=== PATIENT | female | born 1995 | race American Indian/Alaskan Native ===

== ENCOUNTER 2018-07-08 07:02 | Emergency (ER) | payer SELFPAY ==
[2018-07-08 07:24] VITALS: BP 143/87
--- NOTE | 2018-07-08 09:23 | Emergency Department Report ---
ED General Adult HPI - General Chief complaint: Chest Pain Stated complaint: CHEST PAIN/ABD PAIN/DIZZINESS Time Seen by Provider: 07/08/18 09:19 Source: patient Mode of arrival: Ambulatory Limitations: No Limitations - History of Present Illness Initial comments: Patient is 23 years old female with history of ectopic before. Patient presented to the ER complaining of chest pain, diffuse sharp in nature and does not radiate. Patient also complaining of left lower abdominal pain on and off for the last of the 3 days.. Patient stated that she is worried that she might have another ectopic . She denied any vaginal bleeding, vaginal discharge or urinary symptoms. Patient denied any dizziness or lightheadedness - Related Data Previous Rx's Medication Instructions Recorded Last Taken Type Ondansetron [Zofran Odt] 4 mg PO Q8HR PRN #14 tab.rapdis 07/08/18 Unknown Rx Vit Calc,Iron,Folic 1 each PO DAILY #30 tablet 07/08/18 Unknown Rx [ Vitamins] Allergies Allergy/AdvReac Type Severity Reaction Status Date / Time No Known Allergies Allergy Unverified 07/08/18 07:19 ED Review of Systems ROS: Stated complaint: CHEST PAIN/ABD PAIN/DIZZINESS Other details as noted in HPI Comment: All other systems reviewed and negative Respiratory: denies: cough, shortness of breath Cardiovascular: chest pain Gastrointestinal: abdominal pain. denies: nausea, vomiting Neurological: denies: headache, weakness ED Past Medical Hx - Past Medical History Hx Asthma: Yes - Surgical History Additional Surgical History: t&a - Social History Smoking Status: Current Every Day Smoker Substance Use Type: Alcohol - Medications Home Medications: Home Medications Medication Instructions Recorded Confirmed Last Taken Type Ondansetron [Zofran Odt] 4 mg PO Q8HR PRN #14 tab.rapdis 07/08/18 Unknown Rx Vit Calc,Iron,Folic 1 each PO DAILY #30 tablet 07/08/18 Unknown Rx [ Vitamins] ED Physical Exam - General Limitations: No Limitations General appearance: alert, in no apparent distress - Head Head exam: Present: atraumatic, normocephalic - Eye Eye exam: Present: normal appearance - ENT ENT exam: Present: normal exam, normal orophraynx, mucous membranes moist - Neck Neck exam: Present: normal inspection, full ROM. Absent: tenderness, meningismus, lymphadenopathy, thyromegaly - Respiratory Respiratory exam: Present: normal lung sounds bilaterally - Cardiovascular Cardiovascular Exam: Present: regular rate, normal rhythm, normal heart sounds - GI/Abdominal GI/Abdominal exam: Present: soft, normal bowel sounds. Absent: distended, tenderness, guarding, rebound, rigid, organomegaly, mass, bruit, pulsatile mass , hernia - Extremities Exam Extremities exam: Present: normal inspection, full ROM. Absent: tenderness, normal capillary refill, pedal edema, joint swelling, calf tenderness - Neurological Exam Neurological exam: Present: alert, oriented X3, CN II-XII intact, normal gait, reflexes normal - Skin Skin exam: Present: warm, intact, normal color ED Course Vital Signs 07/08/18 07/08/18 07:19 12:02 Temperature 97.7 F Pulse Rate 100 H Respiratory 16 18 Rate Blood Pressure 143/87 O2 Sat by Pulse 99 Oximetry ED Medical Decision Making - Lab Data Result diagrams: 07/08/18 10:01 07/08/18 10:01 - Radiology Data Radiology results: report reviewed Referring Physician: TOÑO FATIMA Patient Name: LYDIA GARCIA Date of : 1995 Sex: Female Report Date: 2018-07-08 Report Status: [place] [address] Ultrasound Report Signed Patient: LYDIA GARCIA MR#: [id number] : 1995 Acct:[id number] Age/Sex: 23 / F ADM Date: 07/08/18 Loc: ED Attending Dr: Ordering Physician: TOÑO FATIMA Date of Service: 07/08/18 Procedure(s): US OB transvaginal Accession Number(s): [id number] cc: TOÑO FATIMA FINAL REPORT EXAM: US OB TRANSVAGINAL HISTORY: ABDOMINAL PAIN TECHNIQUE: Transabdominal and transvaginal OB ultrasound. PRIORS: None currently available. FINDINGS: Single intrauterine dates 9.0 weeks by crown rump length. LEANN equals February 10, 2019.. heart rate: 173 BPM. Uterus: 9.4 x 4.2 x 5.5 cm. Within the canal there is a gestational sac, yolk sac, and pole. No subchorionic bleed. Right ovary: 3.6 x 1.8 x 1.7 cm. Within normal limits. Flow is present to the ovary. Left Ovary: 2.9 x 1.7 x 3.1 cm. Complex lesion or cyst measures 1.6 cm. Flow is present to the ovary. Adnexal: Unremarkable. No free fluid. IMPRESSION: Single live intrauterine . Suspect corpus luteal cyst in the left ovary. Transcribed By: TYM Dictated By: XAVIER HANKS MD Electronically Authenticated By: XAVIER HANKS MD Signed Date/Time: 07/08/181316 DD/ 16 TD/TT: 07/08/181316 Critical care attestation.: If time is entered above; I have spent that time in minutes in the direct care of this critically ill patient, excluding procedure time. ED Disposition Clinical Impression: Abdominal pain affecting Disposition: DC-01 TO HOME OR SELFCARE Is pt being admited?: No Condition: Stable Instructions: Abdominal Pain in (ED) Prescriptions: Ondansetron [Zofran Odt] 4 mg PO Q8HR PRN #14 tab.rapdis PRN Reason: Nausea And Vomiting Vit Calc,Iron,Folic [ Vitamins] 1 each PO DAILY #30 tablet Referrals: PRIMARY CARE, [Primary Care Provider] - 3-5 Days
[2018-07-08 10:21] LABS: Basophils # (Auto) 0.1 K/mm3 (0.0-0.1); Basophils % (Auto) 0.8 % (0.0-1.8); Eosinophils # (Auto) 0.3 K/mm3 (0.0-0.4); Eosinophils % (Auto) 3.3 % (0.0-4.3); Hemoglobin 12.3 gm/dl (10.1-14.3); Lymphocytes # (Auto) 1.8 K/mm3 (1.2-5.4); Lymphocytes % (Auto) 22.3 % (13.4-35.0); Mean Corpuscular HGB Conc 34 % (30-34); Mean Corpuscular Hemoglobin 33 pg (28-32); Mean Corpuscular Volume 96 fl (79-97); Monocytes # (Auto) 0.7 K/mm3 (0.0-0.8); Monocytes % (Auto) 8.9 % (0.0-7.3); Platelet Count 233 K/mm3 (140-440); Red Blood Count 3.76 M/mm3 (3.65-5.03); Red Cell Distribution Width 13.7 % (13.2-15.2)
[2018-07-08 10:28] LABS: BUN/Creatinine Ratio 26; Blood Urea Nitrogen 13 mg/dL (7-17); Calcium 9.2 mg/dL (8.4-10.2); Hemolysis Index 2
[2018-07-08] MEDS ORDERED: NACL 0.9% 1000 ML 1,000 ML IV ONE (11:35)
[2018-07-08 13:13] LABS: Bilirubin,Urine NEG (Negative); Blood,Urine NEG (Negative); Color,Urine Yellow (Yellow); Mucus,Urine 1+ /HPF
[2018-07-08 13:16] LABS: Bacteria,Urine 1+ /HPF (Negative)
--- NOTE | 2018-07-08 13:23 | Ultrasound Report ---
FINAL REPORT EXAM: US OB TRANSVAGINAL HISTORY: ABDOMINAL PAIN TECHNIQUE: Transabdominal and transvaginal OB ultrasound. PRIORS: None currently available. FINDINGS: Single intrauterine dates 9.0 weeks by crown rump length. LEANN equals February 10, 2019.. heart rate: 173 BPM. Uterus: 9.4 x 4.2 x 5.5 cm. Within the canal there is a gestational sac, yolk sac, and pole. No subchorionic bleed. Right ovary: 3.6 x 1.8 x 1.7 cm. Within normal limits. Flow is present to the ovary. Left Ovary: 2.9 x 1.7 x 3.1 cm. Complex lesion or cyst measures 1.6 cm. Flow is present to the ovary. Adnexal: Unremarkable. No free fluid. IMPRESSION: Single live intrauterine . Suspect corpus luteal cyst in the left ovary.
--- NOTE | 2018-07-08 13:25 | Ultrasound Report ---
FINAL REPORT EXAM: US OB < = 14 WEEKS FETUS HISTORY: abdominal pain, , history of ectopic pregn TECHNIQUE: Transabdominal and transvaginal OB ultrasound. PRIORS: None currently available. FINDINGS: Single intrauterine dates 9.0 weeks by crown rump length. LEANN equals February 10, 2019.. heart rate: 173 BPM. Uterus: 9.4 x 4.2 x 5.5 cm. Within the canal there is a gestational sac, yolk sac, and pole. No subchorionic bleed. Right ovary: 3.6 x 1.8 x 1.7 cm. Within normal limits. Flow is present to the ovary. Left Ovary: 2.9 x 1.7 x 3.1 cm. Complex lesion or cyst measures 1.6 cm. Flow is present to the ovary. Adnexal: Unremarkable. No free fluid. IMPRESSION: Single live intrauterine . Suspect corpus luteal cyst in the left ovary.
== END 2018-07-08 13:55 | disposition home or self-care (01) ==
LOC: ED 07:02
DX: O26.891 Other specified pregnancy related conditions, first trimester (principal); R07.89 Other chest pain; R10.2 Pelvic and perineal pain; O99.511 Diseases of the respiratory system complicating pregnancy, first trimester; O99.331 Smoking (tobacco) complicating pregnancy, first trimester; Z3A.09 9 weeks gestation of pregnancy
CPT/HCPCS: 36415; 76801; 76817; 80048; 81001; 84702; 85025; 86850; 86900; 86901; 93005; 93010; 99284; J7030

== ENCOUNTER 2018-07-30 07:57 | Emergency (ER) | payer SELFPAY ==
[2018-07-30 08:59] LABS: Basophils % (Auto) 0.6 % (0.0-1.8); Eosinophils # (Auto) 0.2 K/mm3 (0.0-0.4); Eosinophils % (Auto) 2.9 % (0.0-4.3); Hematocrit 32.7 % (30.3-42.9); Hemoglobin 11.2 gm/dl (10.1-14.3); Lymphocytes % (Auto) 31.7 % (13.4-35.0); Mean Corpuscular HGB Conc 34 % (30-34); Mean Corpuscular Hemoglobin 33 pg (28-32); Mean Corpuscular Volume 96 fl (79-97); Monocytes # (Auto) 0.5 K/mm3 (0.0-0.8); Monocytes % (Auto) 7.8 % (0.0-7.3); Platelet Count 242 K/mm3 (140-440); Red Blood Count 3.41 M/mm3 (3.65-5.03); Red Cell Distribution Width 13.6 % (13.2-15.2)
[2018-07-30 09:15] LABS: BUN/Creatinine Ratio 7; Blood Urea Nitrogen 5 mg/dL (7-17); Calcium 8.9 mg/dL (8.4-10.2); Hemolysis Index 19
[2018-07-30 10:39] LABS: Bacteria,Urine 1+ /HPF (Negative); Bilirubin,Urine NEG (Negative); Blood,Urine NEG (Negative); Color,Urine Yellow (Yellow); Mucus,Urine FEW /HPF; Protein,Urine <15 mg/dL mg/dL (Negative)
[2018-07-30 10:45] LABS: Amphetamine Screen,Urine PRESUMPTIVE NEGATIVE; Benzodiazepines Screen,Urine PRESUMPTIVE NEGATIVE; Cannabinoid Screen,Urine PRESUMPTIVE NEGATIVE; Methadone Screen,Urine PRESUMPTIVE NEGATIVE; Opiate Screen,Urine PRESUMPTIVE NEGATIVE
[2018-07-30 10:59] LABS: Cocaine Screen,Urine PRESUMPTIVE POSITIVE
[2018-07-30] MEDS ORDERED: NACL 0.9% 1000 ML 1,000 ML IV ONE (11:35)
[2018-07-30] MEDS ORDERED: REGLAN IV ONE (11:35)
--- NOTE | 2018-07-30 11:42 | Emergency Department Report ---
HPI - General Chief Complaint: Medical Clearance Time Seen by Provider: 07/30/18 10:20 - HPI HPI: Room 8 The patient is a 23-year-old female presenting with a chief complaint of fatigue. Patient states she feels like someone "spiked" her drink. The patient states she consumed a small amount of alcohol last night and now has a headache, fatigue and nausea. The patient states she "knows" her limitation so she does not drink in excess so this is why she thinks her drink was "spiked." Location: [See above] Duration: [See above] Quality: Fatigue Severity: Moderate Modifying factors: [see above] Context: [see above] Mode of transportation: [not driving] ED Past Medical Hx - Past Medical History Hx Asthma: Yes - Surgical History Additional Surgical History: t&a - Family History Family history: no significant - Social History Smoking Status: Current Some Day Smoker (extremely rarely) Substance Use Type: None (denies illicit drug use), Alcohol - Medications Home Medications: Home Medications Medication Instructions Recorded Confirmed Last Taken Type Ondansetron [Zofran Odt] 4 mg PO Q8HR PRN #14 tab.rapdis 07/08/18 07/30/18 Unknown Rx Vit Calc,Iron,Folic 1 each PO DAILY #30 tablet 07/08/18 07/30/18 Unknown Rx [ Vitamins] ED Review of Systems ROS: Stated complaint: DIZZY/LEFT SIDE PAIN Other details as noted in HPI Constitutional: malaise Eyes: denies: eye pain ENT: denies: throat pain Respiratory: no symptoms reported Cardiovascular: denies: chest pain Endocrine: no symptoms reported Gastrointestinal: nausea. denies: abdominal pain Genitourinary: denies: dysuria Musculoskeletal: denies: back pain Neurological: headache Physical Exam - Physical Exam Vital Signs: Vital Signs 07/30/18 07/30/18 07/30/18 08:05 09:54 10:00 Temperature 97.5 F L Pulse Rate 88 77 Respiratory 16 14 19 Rate Blood Pressure 103/57 94/56 O2 Sat by Pulse 100 Oximetry 07/30/18 07/30/18 07/30/18 10:11 11:24 11:31 Temperature Pulse Rate 102 H 88 Respiratory 18 20 20 Rate Blood Pressure 94/56 105/67 O2 Sat by Pulse 99 Oximetry Physical Exam: GENERAL: The patient is well-developed well-nourished female lying on stretcher not appearing to be in acute distress. [] HEENT: Normocephalic. Atraumatic. Extraocular motions are intact. Patient has moist mucous membranes. NECK: Supple. Trachea midline CHEST/LUNGS: Clear to auscultation. There is no respiratory distress noted. HEART/CARDIOVASCULAR: Regular. There is no tachycardia. There is no gallop rub or murmur. ABDOMEN: Abdomen is soft, nontender. Patient has normal bowel sounds. There is no abdominal distention. SKIN: There is no rash. There is no edema. There is no diaphoresis. NEURO: The patient is awake, alert, and oriented. The patient is cooperative. The patient has no focal neurologic deficits. The patient has normal speech. Cranial nerves II through XII grossly intact MUSCULOSKELETAL: There is no evidence of acute injury. ED Course Vital Signs 07/30/18 07/30/18 07/30/18 08:05 09:54 10:00 Temperature 97.5 F L Pulse Rate 88 77 Respiratory 16 14 19 Rate Blood Pressure 103/57 94/56 O2 Sat by Pulse 100 Oximetry 07/30/18 07/30/18 07/30/18 10:11 11:24 11:31 Temperature Pulse Rate 102 H 88 Respiratory 18 20 20 Rate Blood Pressure 94/56 105/67 O2 Sat by Pulse 99 Oximetry - Consultations Consultation #1: 07/30/18 16:24 Social work was made aware of patient and they state they are already familiar with patient. Patient has all ready been given resources ED Medical Decision Making - Lab Data Result diagrams: 07/30/18 08:41 07/30/18 08:41 Laboratory Tests 07/30/18 07/30/18 07/30/18 08:41 08:41 08:41 WBC RBC Hgb Hct MCV MCH MCHC RDW Plt Count Lymph % (Auto) Amite % (Auto) Eos % (Auto) Baso % (Auto) Lymph # Amite # Eos # Baso # Seg Neutrophils % Seg Neutrophils # Sodium 140 Potassium 3.6 Chloride 104.3 Carbon Dioxide 21 L Anion Gap 18 BUN 5 L Creatinine 0.7 Estimated GFR > 60 BUN/Creatinine Ratio 7 Glucose 117 H Calcium 8.9 Total Creatine Kinase CK-MB (CK-2) CK-MB (CK-2) Rel Index Troponin T HCG, Qual HCG, Quant Urine Color Urine Turbidity Urine pH Ur Specific Brandon Urine Protein Urine Glucose (UA) Urine Ketones Urine Blood Urine Nitrite Urine Bilirubin Urine Urobilinogen Ur Leukocyte Esterase Urine WBC (Auto) Urine RBC (Auto) U Epithel Cells (Auto) Urine Bacteria (Auto) Urine Mucus Salicylates < 0.3 L Urine Opiates Screen Urine Methadone Screen Acetaminophen < 5.0 L Ur Barbiturates Screen Ur Phencyclidine Scrn Ur Amphetamines Screen U Benzodiazepines Scrn Urine Cocaine Screen U Marijuana (THC) Screen Drugs of Abuse Note Plasma/Serum Alcohol 07/30/18 07/30/18 07/30/18 08:41 08:41 08:41 WBC 6.2 RBC 3.41 L Hgb 11.2 Hct 32.7 MCV 96 MCH 33 H MCHC 34 RDW 13.6 Plt Count 242 Lymph % (Auto) 31.7 Amite % (Auto) 7.8 H Eos % (Auto) 2.9 Baso % (Auto) 0.6 Lymph # 2.0 Amite # 0.5 Eos # 0.2 Baso # 0.0 Seg Neutrophils % 57.0 Seg Neutrophils # 3.6 Sodium Potassium Chloride Carbon Dioxide Anion Gap BUN Creatinine Estimated GFR BUN/Creatinine Ratio Glucose Calcium Total Creatine Kinase CK-MB (CK-2) CK-MB (CK-2) Rel Index Troponin T HCG, Qual Positive HCG, Quant Urine Color Urine Turbidity Urine pH Ur Specific Brandon Urine Protein Urine Glucose (UA) Urine Ketones Urine Blood Urine Nitrite Urine Bilirubin Urine Urobilinogen Ur Leukocyte Esterase Urine WBC (Auto) Urine RBC (Auto) U Epithel Cells (Auto) Urine Bacteria (Auto) Urine Mucus Salicylates Urine Opiates Screen Urine Methadone Screen Acetaminophen Ur Barbiturates Screen Ur Phencyclidine Scrn Ur Amphetamines Screen U Benzodiazepines Scrn Urine Cocaine Screen U Marijuana (THC) Screen Drugs of Abuse Note Plasma/Serum Alcohol 0.17 H 07/30/18 07/30/18 07/30/18 08:41 10:06 10:06 WBC RBC Hgb Hct MCV MCH MCHC RDW Plt Count Lymph % (Auto) Amite % (Auto) Eos % (Auto) Baso % (Auto) Lymph # Amite # Eos # Baso # Seg Neutrophils % Seg Neutrophils # Sodium Potassium Chloride Carbon Dioxide Anion Gap BUN Creatinine Estimated GFR BUN/Creatinine Ratio Glucose Calcium Total Creatine Kinase CK-MB (CK-2) CK-MB (CK-2) Rel Index Troponin T HCG, Qual HCG, Quant 85988 H Urine Color Yellow Urine Turbidity Slightly-cloudy Urine pH 6.0 Ur Specific Brandon 1.015 Urine Protein <15 mg/dl Urine Glucose (UA) Neg Urine Ketones Tr Urine Blood Neg Urine Nitrite Neg Urine Bilirubin Neg Urine Urobilinogen 4.0 Ur Leukocyte Esterase Tr Urine WBC (Auto) 1.0 Urine RBC (Auto) 1.0 U Epithel Cells (Auto) 4.0 Urine Bacteria (Auto) 1+ Urine Mucus Few Salicylates Urine Opiates Screen Presumptive negative Urine Methadone Screen Presumptive negative Acetaminophen Ur Barbiturates Screen Presumptive negative Ur Phencyclidine Scrn Presumptive negative Ur Amphetamines Screen Presumptive negative U Benzodiazepines Scrn Presumptive negative Urine Cocaine Screen Presumptive positive U Marijuana (THC) Screen Presumptive negative Drugs of Abuse Note Disclamer Plasma/Serum Alcohol 07/30/18 Unknown WBC RBC Hgb Hct MCV MCH MCHC RDW Plt Count Lymph % (Auto) Amite % (Auto) Eos % (Auto) Baso % (Auto) Lymph # Amite # Eos # Baso # Seg Neutrophils % Seg Neutrophils # Sodium Potassium Chloride Carbon Dioxide Anion Gap BUN Creatinine Estimated GFR BUN/Creatinine Ratio Glucose Calcium Total Creatine Kinase 146 H CK-MB (CK-2) 1.3 CK-MB (CK-2) Rel Index 0.8 Troponin T < 0.010 HCG, Qual HCG, Quant Urine Color Urine Turbidity Urine pH Ur Specific Brandon Urine Protein Urine Glucose (UA) Urine Ketones Urine Blood Urine Nitrite Urine Bilirubin Urine Urobilinogen Ur Leukocyte Esterase Urine WBC (Auto) Urine RBC (Auto) U Epithel Cells (Auto) Urine Bacteria (Auto) Urine Mucus Salicylates Urine Opiates Screen Urine Methadone Screen Acetaminophen Ur Barbiturates Screen Ur Phencyclidine Scrn Ur Amphetamines Screen U Benzodiazepines Scrn Urine Cocaine Screen U Marijuana (THC) Screen Drugs of Abuse Note Plasma/Serum Alcohol - Radiology Data Radiology results: report reviewed (pelvic ultrasound), image reviewed (pelvic ultrasound) Findings [facility] [address] [place] [address] Ultrasound Report Signed Patient: LYDIA GARCIA MR#: [id number] : 1994 Acct:[id number] Age/Sex: 23 / F ADM Date: 07/30/18 Loc: ED Attending Dr: Ordering Physician: SUKI WEI MD Date of Service: 07/30/18 Procedure(s): US OB transvaginal Accession Number(s): [id number] cc: SUKI WEI MD FINAL REPORT EXAM: US OB TRANSVAGINAL HISTORY: AMS, TECHNIQUE: Transvesical and endovaginal pelvic sonographic imaging was performed Comparison: 07/08/2018 FINDINGS: Images demonstrate uterus to measure 11.8 x 7.2 x 9.1 centimeters. Within the uterus, there is a pole identified. By crown-rump length, estimated gestational age 12 weeks 3 days. Mean gestational sac diameter correlates with estimated gestational age of 12 weeks 2 days. Developing anterior placenta. heart rate measures 163 beats per minute. Right ovary measures 3.9 x 1.7 x 2.1 centimeters. Left ovary measures 3.2 x 2.2 x 2.0 centimeters. Both ovaries demonstrate normal color flow and multiple small follicles. IMPRESSION: Single live intrauterine gestation at 12 weeks 3 days with estimated due date of 02/10/19. heart rate measures 163 beats per minute. Expected interval growth. Normal sonographic appearance of the ovaries. Transcribed By: MP Dictated By: JOHN PAUL KENNEDY Electronically Authenticated By: JOHN PAUL KENNEDY Signed Date/Time: 07/30/18 125 DD/DT: 01/15 1258 TD/TT: 07/30/18 1258 - Differential Diagnosis alcohol intoxication, substance abuse, Critical care attestation.: If time is entered above; I have spent that time in minutes in the direct care of this critically ill patient, excluding procedure time. ED Disposition Clinical Impression: Alcohol abuse, Cocaine use, Disposition: DC-01 TO HOME OR SELFCARE Is pt being admited?: No Does the pt Need Aspirin: No Condition: Stable Referrals: PRIMARY CARE, [Primary Care Provider] - 3-5 Days Time of Disposition: 16:24 (d/c to family)
[2018-07-30 12:00] LABS: Creatine Kinase MB 1.3 ng/mL (0.0-4.0)
--- NOTE | 2018-07-30 12:58 | Ultrasound Report ---
FINAL REPORT EXAM: US OB < = 14 WEEKS FETUS HISTORY: AMS, quantitative beta HCG [id number] TECHNIQUE: Transvaginal and transvesical pelvic sonographic imaging was performed Comparison: 07/08/2018 at which time 9 week 0 day IUP was present FINDINGS: Images demonstrate uterus to measure 11.8 x 7.2 x 9.1 centimeters. Within the uterus, there is a pole identified. By crown-rump length, estimated gestational age 12 weeks 3 days. Mean gestational sac diameter correlates with estimated gestational age of 12 weeks 2 days. Developing anterior placenta. heart rate measures 163 beats per minute. Right ovary measures 3.9 x 1.7 x 2.1 centimeters. Left ovary measures 3.2 x 2.2 x 2.0 centimeters. Both ovaries demonstrate normal color flow and multiple small follicles. IMPRESSION: Single live intrauterine gestation at 12 weeks 3 days with estimated due date of 02/10/19. heart rate measures 163 beats per minute. Expected interval growth. Normal sonographic appearance of the ovaries.
--- NOTE | 2018-07-30 13:00 | Ultrasound Report ---
FINAL REPORT EXAM: US OB TRANSVAGINAL HISTORY: AMS, TECHNIQUE: Transvesical and endovaginal pelvic sonographic imaging was performed Comparison: 07/08/2018 FINDINGS: Images demonstrate uterus to measure 11.8 x 7.2 x 9.1 centimeters. Within the uterus, there is a pole identified. By crown-rump length, estimated gestational age 12 weeks 3 days. Mean gestational sac diameter correlates with estimated gestational age of 12 weeks 2 days. Developing anterior placenta. heart rate measures 163 beats per minute. Right ovary measures 3.9 x 1.7 x 2.1 centimeters. Left ovary measures 3.2 x 2.2 x 2.0 centimeters. Both ovaries demonstrate normal color flow and multiple small follicles. IMPRESSION: Single live intrauterine gestation at 12 weeks 3 days with estimated due date of 02/10/19. heart rate measures 163 beats per minute. Expected interval growth. Normal sonographic appearance of the ovaries.
[2018-07-30 13:44] VITALS: BP 96/49
== END 2018-07-30 14:00 | disposition home or self-care (01) ==
LOC: ED 07:57
DX: O99.311 Alcohol use complicating pregnancy, first trimester (principal); O99.511 Diseases of the respiratory system complicating pregnancy, first trimester; O99.331 Smoking (tobacco) complicating pregnancy, first trimester; F14.10 Cocaine abuse, uncomplicated
CPT/HCPCS: 36415; 76801; 76817; 80048; 80307; 81001; 82550; 82553; 84484; 84702; 84703; 85025; 96374; 99285; G0480; J2765; J7030; 80320